=== PATIENT | female | born 1960 | race Caucasian/White ===

== ENCOUNTER → 2019-07-11 | Outpatient (CLI) | payer OTHER, SELFPAY ==
[2019-03-01 13:29] VITALS: BMI 23.2
[2019-07-11 12:21] LABS: Absolute Lymphocyte Count 1.42 X10^3/uL (0.83-4.51); Absolute Neutrophil Count 3.4 X10^3/uL (2.0-7.7); Basophil# 0.06 X10^3/uL; Basophil% 1.1 % (0-1); Eosinophil# 0.13 X10^3/uL; Eosinophils% 2.3 % (0-5); Hematocrit 43.9 % (37-47); Hemoglobin 14.1 g/dL (12.0-15.0); Lymphocyte # 1.42 X10^3/ul (4.0); Lymphocyte % 25.6 % (19-41); Mean Corp Hgb Conc 32.1 g/dL (32-36); Mean Corpuscular Hgb 31.1 pg (27.0-32.0); Mean Corpuscular Volume 96.7 fL (81-99); Mean Platelet Vol. 9.9 fl (6.2-12.0); Monocyte# 0.54 X10^3/uL; Monocyte% 9.7 % (0-10); NRBC Flagged by Analyzer 0 % (0-5); Neutrophil # 3.38 X10^3/uL (2.7-7.7); Neutrophil % 60.9 % (47-70); Platelet Count 275 K/mm3 (150-450); RBC Distribution Width CV 12.6 % (11.6-14.6); Red Blood Count 4.54 M/mm3 (4.2-5.4); White Blood Count 5.6 K/mm3 (4.4-11.0)
[2019-07-11 12:47] LABS: ALB/GLOB Ratio 1.2 RATIO (0.9-2.4); AST(SGOT) 18 U/L (15-37); Alanine Aminotransfer ALT/SGPT 29 U/L (13-56); Alkaline Phosphatase 45 U/L (45-117); Anion Gap 7 (5-15); BUN 20 mg/dL (7-18); BUN/Creat Ratio 22.8 RATIO (10-20); Calcium,Total 8.9 mg/dL (8.5-10.1); Chloride 106 mmol/L (98-107); Cholesterol 209 mg/dL (200); Creatinine, Serum 0.88 mg/dL (0.55-1.02); EST Glomerular Filtration Rate 70 mL/min (>60); Est Glom Filt Rate - Afr Amer 85 mL/min (>60); Globulin 3.4 g/dL (2.2-4.2); Glucose 97 mg/dL (74-106); High Density Lipoprotein 76 mg/dL; Potassium 4.1 mmol/L (3.5-5.1); Protein, Total 7.4 g/dL (6.4-8.2); Sodium Level 140 mmol/L (136-145); Thyroid Stim Hormone (TSH) 1.97 uIU/mL (0.358-3.74); Triglycerides 125 mg/dL; Very Low Density Lipoprotein 25 mg/dL (5-40)
== END | disposition home or self-care (01) ==
PROVIDERS: Visit Provider Family Medicine
DX: Z00.00 Encounter for general adult medical examination without abnormal findings (principal); R01.1 Cardiac murmur, unspecified; R53.83 Other fatigue
CPT/HCPCS: 36415; 80053; 80061; 84443; 85025

== ENCOUNTER → 2019-09-05 08:44 | Outpatient (CLI) | payer OTHER, SELFPAY ==
[2019-03-01 13:29] VITALS: BMI 23.2
--- NOTE | 2019-09-05 08:46 | ECHOD_ITS ---
Reason For Study: Systolic murmur Procedure This was a 2D Doppler, Color Flow transthoracic echocardiogram. Exam performed in department. Left Ventricle Normal LV size. Left ventricular systolic function is normal. The estimated ejection fraction is 60 %. Stage 3 diastolic dysfunction. No regional wall motion abnormalities noted. Right Ventricle Normal RV size. Normal systolic function. Atria Normal left atrium. Normal right atrium. Bubble contrast study negative for right to left interatrial shunt. Mitral Valve Moderate mitral valve prolapse. Moderate mitral valve prolapse, anterior leaflet. Moderate mitral valve prolapse, posterior leaflet. Moderate (2+) eccentric mitral valve insufficiency. Mild-Moderate (1-2+) anteriorly directed mitral valve insufficiency. Mild-Moderate (1-2+) posteriorly directed mitral valve insufficiency. Tricuspid Valve Normal tricuspid valve. Mild (1+) tricuspid valve insufficiency. Pulmonary artery systolic pressure is 31 mmHg. Aortic Valve Normal aortic valve. Trisinus/trileaflet aortic valve. Mild (1+) eccentric aortic valve insufficiency. Pulmonic Valve Normal pulmonic valve. Great Vessels Normal aortic root. The pulmonary artery is normal size. Normal inferior vena cava. Pericardium/Pleural No pericardial effusion. Medication Performed a rapid injection of agitated mix of 9 cc saline and 1cc air to assess for atrial septal defect. MMode/2D Measurements & Calculations LVIDd: 4.8 cm IVSd: 1.3 cm Ao root diam: 3.3 cm LVIDs: 2.7 cm LVPWd: 1.1 cm RVDd: 3.7 cm FS: 43.9 % LAV(MOD-bp): 59.3 ml LVAd ap4: 28.4 cm2 SV(MOD-sp4): 57.7 ml LAV(MOD-bp) Indexed: 33.3 ml/m2 EDV(MOD-sp4): 85.2 ml LAV(MOD-sp2): 59.8 ml EDV(sp4-el): 87.4 ml LAV(MOD-sp4): 54.9 ml LVAs ap4: 14.4 cm2 ESV(MOD-sp4): 27.5 ml ESV(sp4-el): 26.7 ml EF(MOD-sp4): 67.7 % EF(sp4-el): 69.4 % SV(sp4-el): 60.6 ml LA A4 area: 17.5 cm2 LA dimension(2D): 3.9 cm RA A4 area: 15.0 cm2 Doppler Measurements & Calculations MV E max paul: 115.4 cm/sec Lat Peak E' Paul: 4.4 cm/sec Med Peak E' Paul: 7.6 cm/sec MV A max paul: 52.8 cm/sec E/E' lat: 26.3 E/E' med: 15.3 MV E/A: 2.2 Ao V2 max: 117.1 cm/sec AI max paul: 375.3 cm/sec LV V1 max: 89.8 cm/sec Ao max P.5 mmHg AI max P.3 mmHg LV V1 max P.2 mmHg Ao V2 mean: 83.6 cm/sec Ao mean P.1 mmHg AI dec slope: 173.7 cm/sec2 Ao V2 VTI: 24.1 cm AI P1/2t: 632.7 msec PA V2 max: 57.4 cm/sec TR max paul: 262.4 cm/sec TR max P.5 mmHg Interpretation Summary Normal LV size. Left ventricular systolic function is normal. The estimated ejection fraction is 60 %. Stage 3 diastolic dysfunction. Bubble contrast study negative for right to left interatrial shunt. Moderate mitral valve prolapse. Mild-Moderate (1-2+) anteriorly directed mitral valve insufficiency. Mild-Moderate (1-2+) posteriorly directed mitral valve insufficiency. Ordering Physician: Smita Gonzalez Referring Physician: Smita Gonzalez Performed By: Denise Dickey, ANTHONY, RVT
== END ==
PROVIDERS: Family Provider Family Medicine; PCP Family Medicine; Referring Provider Family Medicine; Visit Provider Family Medicine
DX: R01.1 Cardiac murmur, unspecified (principal)
CPT/HCPCS: 93306; A4216

== ENCOUNTER → 2020-10-16 12:40 | Outpatient (CLI) | payer OTHER, SELFPAY ==
[2020-06-20 16:04] VITALS: BMI 23.9
--- NOTE | 2020-10-16 12:46 | ECHOD_ITS ---
Reason For Study: MVP Procedure This was a 2D Doppler, Color Flow transthoracic echocardiogram. Exam performed in department. Left Ventricle Normal LV size. Left ventricular systolic function is normal. The estimated ejection fraction is 55 %. No regional wall motion abnormalities noted. Right Ventricle Normal right ventricle. Normal systolic function. Atria Normal left atrium. Normal right atrium. Mitral Valve Moderate mitral valve prolapse. Mild-Moderate (1-2+) posteriorly directed mitral valve insufficiency. Tricuspid Valve Normal tricuspid valve. Mild tricuspid valve insufficiency. Pulmonary artery systolic pressure is 26 mmHg. Aortic Valve Normal aortic valve. Trisinus/trileaflet aortic valve. Mild (1+) aortic valve insufficiency. Pulmonic Valve Normal pulmonic valve. Great Vessels Normal aortic root. The pulmonary artery is normal size. Normal inferior vena cava. Pericardium/Pleural No pericardial effusion. MMode/2D Measurements & Calculations LVIDd: 4.7 cm IVSd: 1.1 cm Ao root diam: 4.0 cm LVIDs: 2.6 cm LVPWd: 1.0 cm RVDd: 2.8 cm FS: 44.0 % LAV(MOD-bp): 75.6 ml EDV(MOD-sp4): 126.2 ml EDV(MOD-sp2): 120.4 ml LAV(MOD-bp) Indexed: 41.9 ml/m2 ESV(MOD-sp4): 44.9 ml EF(MOD-sp2): 65.3 % LAV(MOD-sp2): 90.0 ml EF(MOD-sp4): 64.4 % LAV(MOD-sp4): 61.1 ml SV(MOD-sp4): 81.3 ml SV(MOD-sp2): 78.6 ml LA A4 area: 20.9 cm2 LA dimension(2D): 4.0 cm RA A4 area: 13.0 cm2 Time Measurements MV dec time: 0.19 sec Doppler Measurements & Calculations MV E max paul: 107.9 cm/sec Lat Peak E' Paul: 10.5 cm/sec Med Peak E' Paul: 8.3 cm/sec MV A max paul: 57.9 cm/sec E/E' lat: 10.2 E/E' med: 12.9 MV E/A: 1.9 Ao V2 max: 125.7 cm/sec AI max paul: 411.2 cm/sec LV V1 max: 122.0 cm/sec Ao max P.3 mmHg AI max P.6 mmHg LV V1 max P.0 mmHg AI dec slope: 199.9 cm/sec2 AI P1/2t: 602.6 msec PA V2 max: 65.8 cm/sec TR max paul: 239.6 cm/sec TR max P.0 mmHg Interpretation Summary Normal LV size. Left ventricular systolic function is normal. The estimated ejection fraction is 55 %. Mild-Moderate (1-2+) posteriorly directed mitral valve insufficiency. Moderate mitral valve prolapse. Compared to prior study, there is no significant change. Ordering Physician: Karson Sow Referring Physician: Smita Gonzalez Performed By: Yvrose Negrete, RDCS, RVT
== END ==
PROVIDERS: PCP Family Medicine; Referring Provider Internal Medicine Cardiovascular Disease; Visit Provider Internal Medicine Cardiovascular Disease
DX: I34.1 Nonrheumatic mitral (valve) prolapse (principal)
CPT/HCPCS: 93306

== ENCOUNTER → 2021-05-02 13:43 | Outpatient (CLI) | payer OTHER, SELFPAY ==
[2020-06-20 16:04] VITALS: BMI 23.9
--- NOTE | 2021-05-02 13:47 | ECHOD_ITS ---
Reason For Study: MVP Procedure This was a 2D Doppler, Color Flow transthoracic echocardiogram. Exam performed in department. Left Ventricle Normal LV size. Left ventricular systolic function is normal. The estimated ejection fraction is 60 %. No regional wall motion abnormalities noted. Right Ventricle Normal RV size. Normal systolic function. Atria Normal left atrium. Normal right atrium. Mitral Valve Bileaflet diffuse mitral valve thickening. Posterior leaflet mitral valve prolapse. Moderate (2+) anteriorly directed mitral valve insufficiency. Tricuspid Valve Normal tricuspid valve. Mild (1+) tricuspid valve insufficiency. Aortic Valve Trisinus/trileaflet aortic valve. Mild (1+) aortic valve insufficiency. Pulmonic Valve Normal pulmonic valve. Great Vessels Normal aortic root. The pulmonary artery is normal size. Normal inferior vena cava. Pericardium/Pleural No pericardial effusion. MMode/2D Measurements & Calculations LVIDd: 4.7 cm IVSd: 1.3 cm Ao root diam: 3.6 cm LVIDs: 2.4 cm LVPWd: 1.3 cm FS: 49.1 % LAV(MOD-bp): 59.1 ml LVAd ap4: 35.8 cm2 SV(MOD-sp4): 72.4 ml LAV(MOD-bp) Indexed: 32.7 ml/m2 LVLd ap4: 8.0 cm LAV(MOD-sp2): 72.1 ml EDV(MOD-sp4): 131.8 ml LAV(MOD-sp4): 43.3 ml EDV(sp4-el): 136.0 ml LVAs ap4: 23.8 cm2 LVLs ap4: 7.8 cm ESV(MOD-sp4): 59.4 ml ESV(sp4-el): 61.2 ml EF(MOD-sp4): 54.9 % EF(sp4-el): 55.0 % SV(sp4-el): 74.8 ml LA A4 area: 17.5 cm2 LA dimension(2D): 3.7 cm RA A4 area: 13.0 cm2 Doppler Measurements & Calculations MV E max paul: 124.1 cm/sec Lat Peak E' Paul: 9.1 cm/sec Med Peak E' Paul: 7.2 cm/sec MV A max paul: 62.7 cm/sec E/E' lat: 13.6 E/E' med: 17.3 MV E/A: 2.0 Ao V2 max: 149.7 cm/sec AI max paul: 411.0 cm/sec LV V1 max: 105.0 cm/sec Ao max P.0 mmHg AI max P.6 mmHg LV V1 max P.4 mmHg AI dec slope: 168.6 cm/sec2 AI P1/2t: 713.8 msec PA V2 max: 58.7 cm/sec TR max paul: 243.5 cm/sec TR max P.7 mmHg ECHO/Echo Complete Interpretation Summary Normal LV size. Left ventricular systolic function is normal. The estimated ejection fraction is 60 %. Posterior leaflet mitral valve prolapse. Moderate (2+) anteriorly directed mitral valve insufficiency. Mild (1+) aortic valve insufficiency. Compared to the previous there is no change. Ordering Physician: Karson Sow Referring Physician: Smita Gonzalez Performed By: Marisol De La Rosa, ANTHONY
== END ==
PROVIDERS: PCP Family Medicine; Referring Provider Internal Medicine Cardiovascular Disease; Visit Provider Internal Medicine Cardiovascular Disease
DX: I34.1 Nonrheumatic mitral (valve) prolapse (principal); I34.0 Nonrheumatic mitral (valve) insufficiency; I11.9 Hypertensive heart disease without heart failure; R00.2 Palpitations; R07.9 Chest pain, unspecified
CPT/HCPCS: 93306

== ENCOUNTER → 2022-02-19 | Outpatient (CLI) | payer OTHER, SELFPAY ==
--- NOTE | 2022-02-19 13:00 | ECHOD_ITS ---
Reason For Study: MV Insufficiency Procedure This was a 2D Doppler, Color Flow transthoracic echocardiogram. Exam performed in department. Left Ventricle Normal LV size. Left ventricular systolic function is normal. The estimated ejection fraction is 60 %. Stage 2 diastolic dysfunction. No regional wall motion abnormalities noted. Right Ventricle Normal RV size. Normal systolic function. Atria Normal left atrium. Normal right atrium. Mitral Valve Bileaflet diffuse mitral valve thickening. Anterior leaflet mitral valve prolapse. Mild mitral valve prolapse, posterior leaflet. Moderate (2+) anteriorly directed mitral valve insufficiency. Tricuspid Valve Normal tricuspid valve. Mild to moderate (1-2+) tricuspid valve insufficiency. Pulmonary artery systolic pressure is 34 mmHg. Aortic Valve Normal aortic valve. Pulmonic Valve Normal pulmonic valve. Great Vessels Mildly dilated aortic root. The pulmonary artery is normal size. Normal inferior vena cava. Pericardium/Pleural No pericardial effusion. MMode/2D Measurements & Calculations LVIDd: 5.0 cm IVSd: 1.0 cm Ao root diam: 3.8 cm LVIDs: 2.7 cm LVPWd: 1.1 cm RVDd: 3.1 cm FS: 46.7 % LAV(MOD-bp): 58.9 ml LVAd ap4: 27.9 cm2 SV(MOD-sp4): 58.2 ml LAV(MOD-bp) Indexed: 32.9 ml/m2 LVLd ap4: 7.7 cm LAV(MOD-sp2): 73.0 ml EDV(MOD-sp4): 83.5 ml LAV(MOD-sp4): 43.3 ml EDV(sp4-el): 86.4 ml LVAs ap4: 13.9 cm2 LVLs ap4: 6.4 cm ESV(MOD-sp4): 25.3 ml ESV(sp4-el): 25.4 ml EF(MOD-sp4): 69.7 % EF(sp4-el): 70.6 % SV(sp4-el): 61.0 ml LA A4 area: 17.0 cm2 LA dimension(2D): 4.0 cm RA A4 area: 11.9 cm2 Doppler Measurements & Calculations MV E max paul: 120.8 cm/sec Lat Peak E' Paul: 8.0 cm/sec Med Peak E' Paul: 5.7 cm/sec MV A max paul: 64.7 cm/sec E/E' lat: 15.1 E/E' med: 21.0 MV E/A: 1.9 Ao V2 max: 129.6 cm/sec LV V1 max: 98.7 cm/sec PA V2 max: 91.5 cm/sec Ao max P.7 mmHg LV V1 max P.9 mmHg Ao V2 mean: 94.9 cm/sec Ao mean P.9 mmHg Ao V2 VTI: 19.4 cm PI end-d paul: 106.9 cm/sec TR max paul: 272.1 cm/sec TR max P.6 mmHg ECHO/Echo Complete Interpretation Summary Normal LV size. Left ventricular systolic function is normal. The estimated ejection fraction is 60 %. Mild mitral valve prolapse, posterior leaflet Moderate (2+) anteriorly directed mitral valve insufficiency. Stage 2 diastolic dysfunction. Mildly dilated aortic root. Pulmonary artery systolic pressure is 34 mmHg. Ordering Physician: Brooke Romero Referring Physician: Smita Gonzalez Performed By: Denise Dickey, ANTHONY, RVT
== END | disposition home or self-care (01) ==
LOC: CVS 12:58
PROVIDERS: PCP Family Medicine; Referring Provider Nurse Practitioner Gerontology; Visit Provider Nurse Practitioner Gerontology
DX: I34.0 Nonrheumatic mitral (valve) insufficiency (principal); I34.1 Nonrheumatic mitral (valve) prolapse; R00.2 Palpitations
CPT/HCPCS: 93225; 93226; 93306

== ENCOUNTER → 2022-04-21 | Outpatient (CLI) | payer OTHER, SELFPAY ==
--- NOTE | 2022-04-21 13:13 | STRESSREP ---
Stress Test Report Exercise stress test. 62-year-old lady with a history of chest pain. Stress protocol: Resting KG demonstrates normal sinus rhythm with a rate of 66 bpm normal intervals are noted resting blood pressure is 110/68 mmHg. The patient exercised according to regular Flakito protocol for total duration of 10 minutes. Patient completed 1 minute into stage IV of the Flakito protocol. The maximum heart rate attained was 171 bpm which was 108% of max impacted heart rate the maximum workload was 13.4 metabolic equivalents. At rest there were no ST or T wave changes noted to suggest ischemia and at peak exercise upsloping ST changes were noted with did not meet the criteria for ischemia. No clinical angina was noted. No arrhythmias were noted. The peak blood pressure was 144/74 mmHg which was a good blood pressure response to exercise. Conclusion: Exercise stress test with no EKG criteria for ischemia at a high workload. No clinical angina noted. Excellent functional capacity.
== END | disposition home or self-care (01) ==
LOC: CVS 11:40
PROVIDERS: PCP Family Medicine; Referring Provider Nurse Practitioner Gerontology; Visit Provider Nurse Practitioner Gerontology
DX: I34.1 Nonrheumatic mitral (valve) prolapse (principal); R07.9 Chest pain, unspecified; R00.2 Palpitations
CPT/HCPCS: 93017

== ENCOUNTER → 2022-05-02 | Outpatient (CLI) | payer OTHER, SELFPAY | END | disposition home or self-care (01) | LOC: OPBI 17:26 | PROVIDERS: PCP Family Medicine; Visit Provider Student in an Organized Health Care Education/Training Program | DX: Z12.4 Encounter for screening for malignant neoplasm of cervix (principal) ==

== ENCOUNTER → 2023-05-22 | Outpatient (CLI) | payer OTHER, SELFPAY ==
--- NOTE | 2023-05-22 10:49 | ECHOD_ITS ---
Reason For Study: MVP Procedure This was a 2D Doppler, Color Flow transthoracic echocardiogram. Exam performed in department. Left Ventricle Normal LV size. Left ventricular systolic function is normal. The estimated ejection fraction is 70 %. Normal diastology for age. No regional wall motion abnormalities noted. Right Ventricle Normal RV size. Normal systolic function. Atria Normal left atrium. Normal right atrium. Mitral Valve Bileaflet diffuse mitral valve thickening. Anterior leaflet mitral valve prolapse. Mild mitral valve prolapse, posterior leaflet. Moderately severe (3+) eccentric mitral valve insufficiency. Tricuspid Valve Normal tricuspid valve. Mild to moderate (1-2+) tricuspid valve insufficiency. Pulmonary artery systolic pressure is 44 mmHg. Aortic Valve Trisinus/trileaflet aortic valve. Trivial eccentric aortic valve insufficiency. MMode/2D Measurements & Calculations LVIDd: 5.4 cm IVSd: 0.98 cm Ao root diam: 3.9 cm LVIDs: 2.7 cm LVPWd: 0.89 cm RVDd: 3.5 cm FS: 50.1 % LAV(MOD-bp): 76.0 ml SV(MOD-sp4): 52.9 ml LVAd ap4: 29.0 cm2 LAV(MOD-bp) Indexed: 42.5 ml/m2 LVLd ap4: 7.4 cm LAV(MOD-sp2): 85.5 ml EDV(MOD-sp4): 92.3 ml LAV(MOD-sp4): 62.5 ml EDV(sp4-el): 96.3 ml LVAs ap4: 17.5 cm2 LVLs ap4: 6.4 cm ESV(MOD-sp4): 39.4 ml ESV(sp4-el): 40.6 ml EF(MOD-sp4): 57.4 % EF(sp4-el): 57.8 % SV(sp4-el): 55.7 ml LA A4 area: 19.8 cm2 LA dimension(2D): 3.8 cm TAPSE: 2.5 cm RA A4 area: 11.9 cm2 Time Measurements MV dec time: 0.21 sec Doppler Measurements & Calculations MV E max paul: 123.3 cm/sec Lat Peak E' Paul: 7.9 cm/sec Med Peak E' Paul: 8.2 cm/sec MV A max paul: 59.9 cm/sec E/E' lat: 15.5 E/E' med: 15.1 MV E/A: 2.1 MV V2 max: 156.5 cm/sec MV dec slope: 591.6 cm/sec2 Ao V2 max: 125.1 cm/sec MV max P.8 mmHg Ao max P.3 mmHg MV V2 mean: 82.6 cm/sec Ao V2 mean: 84.1 cm/sec MV mean P.3 mmHg Ao mean P.2 mmHg MV V2 VTI: 33.9 cm Ao V2 VTI: 20.5 cm AV (velocity ratio): 0.73 AI max paul: 375.7 cm/sec LV V1 max: 103.3 cm/sec PA V2 max: 70.9 cm/sec AI max P.4 mmHg LV V1 max P.3 mmHg AI dec slope: 233.7 cm/sec2 LV V1 mean P.3 mmHg AI P1/2t: 470.8 msec LV V1 mean: 73.0 cm/sec LV V1 VTI: 15.0 cm PI end-d paul: 117.8 cm/sec TR max paul: 321.1 cm/sec TR max P.2 mmHg ECHO/Echo Complete Interpretation Summary Normal LV size. Left ventricular systolic function is normal. The estimated ejection fraction is 70 %. Anterior leaflet mitral valve prolapse. Mild mitral valve prolapse, posterior leaflet Moderately severe (3+) eccentric mitral valve insufficiency. Prior to the previous the extent of the mitral regurgitation is worse and the p ulmonary pressures are mildly elevated. Ordering Physician: Karson Sow Referring Physician: Smita Gonzalez Performed By: Denise Dickey, RDCS, RVT
== END | disposition home or self-care (01) ==
PROVIDERS: PCP Family Medicine; Referring Provider Internal Medicine Cardiovascular Disease; Visit Provider Internal Medicine Cardiovascular Disease
DX: I34.1 Nonrheumatic mitral (valve) prolapse (principal); I77.810 Thoracic aortic ectasia; I34.0 Nonrheumatic mitral (valve) insufficiency; I11.9 Hypertensive heart disease without heart failure; R00.2 Palpitations; R53.83 Other fatigue; R42 Dizziness and giddiness
CPT/HCPCS: 93306

== ENCOUNTER 2023-06-17 06:45 | Day surgery (SDC) | payer OTHER, SELFPAY ==
--- NOTE | 2023-06-01 16:06 | PCM.HP.BLA ---
History and Physical Date of Admission: 06/17/23 This is a pleasant 63-year-old lady who presents to [facility] today for a heart catheterization. She has a history of mitral valve disease. She also as part of her work-up underwent a Holter monitor which demonstrated an average heart rate of 86 bpm with no acute changes as well as a stress test where she exercised to 13.4 metabolic equivalents without any evidence of ischemia. She had a repeat echocardiogram May 2023.. She denies SOB, Orthopnea, and PND. She does not have bleeding issues; no blood in urine, stool or nosebleeds. She does have fatigue over the last year. She denies myalgias, or claudication. She does not have edema, or sudden weight gain. She states that she has lightheadedness/dizziness with quick positional changes. She denies syncopal or near syncopal episodes, and headaches. Intake Vital Signs: See EMR Intake Visit Reasons: [facility] Allergies tetracycline Allergy (Mild, Verified 04/21/22 13:24) rash Medications See EMR [facility] Medical History Dilated aortic root Essential (primary) hypertension Left ventricular diastolic dysfunction Lightheadedness Nonrheumatic mitral (valve) insufficiency Nonrheumatic mitral (valve) prolapse Osteoarthritis Surgical History History of breast augmentation History of breast implant removal History of colonoscopy (2014) history of left calcaneous repair History of open reduction and internal fixation (ORIF) procedure (11/2018) History of repair of anterior cruciate ligament of right knee History of tonsillectomy and adenoidectomy History of wisdom tooth extraction Family History Brother Heart disease Hypertension Myocardial infarction, Onset Age: 47 from [place] age 47 had valvular heart diseaseFather Multiple sclerosisMother Breast cancerSon Heart disease MVP Social History Smoking Status: Never smoker alcohol intake: current alcohol intake frequency: a few times a week substance use type: does not use caffeine: Yes ([employer]) Type: other Number of servings: 1 ROS Const Const: Positive for fatigue (taking naps w/o relief); Negative for weakness, headache(s), frequent falls, difficulty sleeping or excessive sweating Eyes Eyes: Negative for loss of peripheral vision, transient loss of vision, blurry vision, double vision or tunnel vision ENT ENT: Negative for headache(s), dizziness, Nosebleed/epistaxis or balance problems Cardio Chest Pain: No Palpitations: Yes (with exercise) feels like its: skipping and thumping Edema: None Muscle aches with walking: None Resp Respiratory: Negative for SOB with activity, SOB at rest, SOB orthopnea\SOB lying down, Cough or paroxysmal nocturnal dyspnea GI GI: Negative nausea, vomiting, heartburn or black,tarry stools : Negative for hematuria Musc Musc: Negative for muscle aches/ myalgia, muscle weakness, joint pain or balance problems Skin Skin: Negative non-healing lesions, rash or unusual bruising Neuro Neuro: Positive for lightheadedness (with position changes); Negative for dizziness, near syncope, syncope, orthostatic symptoms, frequent falls, headache(s), weakness, confusion, memory loss, blurry vision, double vision, vertigo or lack of coordination Kyle Hematologic/Lymphatic: Negative for easy bleeding or easy bruising Endo Endo: Positive for fatigue (taking naps w/o relief); Negative for excessive sweating, flushing or increased thirst/drinking Psych Psych: Negative for anxiety or depression Allergy Allergy/Immunology: Negative for hives and Negative for rash Cardiology Exam Const Appearance: cooperative and no acute distress Orientation: alert and oriented x3 Head Head: normal to inspection Ears: hearing grossly normal bilaterally Nose: external nose normal Face and Sinus: face symmetric Eyes General: appearance normal, both eyes and all related structures Eyelids: eyelids normal Conjunctivae: conjunctivae normal Pupils: PERRL and pupil size EOM: EOM intact bilaterally Neck Neck: normal visual inspection Carotids: Negative bruit Chest Chest inspection: normal inspection of the chest and normal respiratory effort Auscultation: Bilateral: Clear to Auscultation Cardio Palpation: normal PMI Rate: regular rate Rhythm: regular rhythm Heart sounds: S1 normal, S2 normal, murmur and mid systolic click; Negative rub or gallop Murmur: Grade 3/6, harsh, apex and axilla GI GI: normal to inspection and soft; Negative no hepatosplenomegaly Neuro General: patient alert, patient oriented x3 and CN's II-XI intact bilaterally Skin Skin: no rashes or lesions noted Extremities Pulses: Normal: Right Posterior Tibial Pulse, Left Posterior Tibial Pulse, Right Radial Pulse and Left Radial Pulse Lower Extremity Edema: None: Bilateral Psych Psychological: normal affect Supplemental Info Supplemental Information Echocardiogram from 05/22/2023: Interpretation Summary Normal LV size. Left ventricular systolic function is normal. The estimated ejection fraction is 70 %. Anterior leaflet mitral valve prolapse. Mild mitral valve prolapse, posterior leaflet Moderately severe (3+) eccentric mitral valve insufficiency. Prior to the previous the extent of the mitral regurgitation is worse and the pulmonary pressures are mildly elevated. ECHOCARDIOGRAM 02/19/2022 Interpretation Summary Normal LV size. Left ventricular systolic function is normal. The estimated ejection fraction is 60 %. Mild mitral valve prolapse, posterior leaflet Moderate (2+) anteriorly directed mitral valve insufficiency. Stage 2 diastolic dysfunction. Mildly dilated aortic root. Pulmonary artery systolic pressure is 34 mmHg.? Exercise stress test 04/21/2022 Conclusion: Exercise stress test with no EKG criteria for ischemia at a high workload. No clinical angina noted. Excellent functional capacity. Assessment and Plan Assessment and Plan (1) Nonrheumatic mitral (valve) prolapse: Status: Chronic Plan: She underwent an echocardiogram in May 2023 that showed ejection fraction of 70% and moderate to severe mitral valve insufficiency. RVSP was noted be 44 mmHg. She will proceed with heart catheterization to define coronary artery anatomy to assist with further mitral valve work-up.
--- NOTE | 2023-06-15 10:55 | RAD_ITS ---
EXAM: XR CHEST, 2 VIEWS CLINICAL INDICATION: pre procedure TECHNIQUE: Frontal and lateral views of the chest. COMPARISON: No relevant prior studies available. FINDINGS: LUNGS AND PLEURAL SPACES: Increased lucencies at the lower lungs suggests emphysema. No pneumothorax. No effusion. HEART: Unremarkable. Cardiac silhouette not enlarged. MEDIASTINUM: Central airways and mediastinal contour are unremarkable. BONES/JOINTS: S-shaped curvature of the spine with multilevel degenerative changes. No unusual lytic or sclerotic lesions of bone. SOFT TISSUES: Unremarkable. VASCULATURE: Ectatic thoracic aortic arch. RAD/Chest PA and Lateral IMPRESSION: No acute cardiopulmonary disease. Electronically Signed: Scotty Dobbs MD at 4:50 EDT ,
[2023-06-15 11:30] LABS: Absolute Lymphocyte Count 1.76 X10^3/uL (0.83-4.51); Absolute Neutrophil Count 3.4 X10^3/uL (2.0-7.7); Basophil# 0.05 X10^3/uL; Basophil% 0.9 % (0-1); Eosinophils% 1.7 % (0-5); Hematocrit 44.3 % (37-47); Hemoglobin 14.7 g/dL (12.0-15.0); Lymphocyte # 1.76 X10^3/ul (0.83-4.51); Lymphocyte % 30.2 % (19-41); Mean Corp Hgb Conc 33.2 g/dL (32-36); Mean Corpuscular Hgb 32.5 pg (27.0-32.0); Mean Corpuscular Volume 97.8 fL (81-99); Mean Platelet Vol. 9.8 fl (6.2-12.0); Monocyte# 0.55 X10^3/uL; Monocyte% 9.4 % (0-10); NRBC Flagged by Analyzer 0 % (0-5); Neutrophil # 3.35 X10^3/uL (2.7-7.7); Neutrophil % 57.5 % (47-70); Platelet Count 285 K/mm3 (150-450); RBC Distribution Width CV 12.8 % (11.6-14.6); RBC Distribution Width SD 45.7 fl (35.1-43.9); Red Blood Count 4.53 M/mm3 (4.2-5.4); White Blood Count 5.8 K/mm3 (4.4-11.0)
[2023-06-15 11:47] LABS: Prothrombin Time (Protime)PT. 13.4 SECONDS (11.7-14.9)
[2023-06-15 11:59] LABS: Anion Gap 4 (5-15); BUN 17 mg/dL (7-18); BUN/Creat Ratio 19.5 RATIO (10-20); Calcium,Total 9.6 mg/dL (8.5-10.1); Chloride 105 mmol/L (98-107); Creatinine, Serum 0.87 mg/dL (0.55-1.02); EST Glomerular Filtration Rate 69 mL/min (>60); Est Glom Filt Rate - Afr Amer 84 mL/min (>60); Glucose 89 mg/dL (74-106); Potassium 3.8 mmol/L (3.5-5.1); Sodium Level 138 mmol/L (136-145)
[2023-06-16 12:59] VITALS: BMI 23.9
--- NOTE | 2023-06-17 08:43 | CL.D_ITS ---
Patient Name: JUANITO HDEZ Study Date: 06/17/2023 Performing: Karson Sow MD Ht: 67 inches 170.18 cm : 1960 Wt: 153 lbs 69.4 kg Age: 63 Gender: female BSA: 1.8 PROCEDURE(S) PERFORMED DC01-([id number])LHC/COR/LV CLINICAL PROFILE AND INDICATIONS Indications: Valvular Disease Heart Failure: None Stress/Imaging Stress/Image Study Performed: No CAD Presentations: No Sxs, no angina. CONCLUSIONS Normal coronary arteries Normal LV size, wall motion,and systolic function Mitral Valve Insufficiency Severe RECOMMENDATIONS Surgery consult for valvular disease DESCRIPTION OF PROCEDURE The patient arrived to the procedure lab. The risks and benefits of the procedure as well as a full description of our services here and current unavailability of surgical backup were fully explained to the patient and/or their significant other prior to the catheterization. The Timeout was completed, verifying the correct patient and procedure. The patient's procedural site was prepped and draped in the usual fashion. Local anesthetic was given subcutaneously to right radial region with Lidocaine 2%. Local anesthetic was given subcutaneously to right groin region with Lidocaine 2%. Using a modified Seldinger technique, arterial access was obtained via the right femoral artery, a 5Fr sheath was inserted. Left Coronary Artery selective angiography was performed in multiple views using a 5 Fr. JL4 catheter. Right Coronary Artery selective angiography was then performed in multiple views using a 5 Fr. 3DRC (Julien) catheter. Left Ventriculography was performed in OLSON projection using a 5 Fr. Pigtail catheter. LV to AO pullback pressures were then recorded.Contrast was injected through the sheath and the Right Iliac and Femoral artery were assessed for possible closure device.The arterial sheath was pulled and a Mynx closure device was deployed for hemostasis CORONARY ANGIOGRAPHY DOMINANCE: Right Dominant LEFT HEART ASSESSMENT Left Ventricular Ejection Fraction: by LV Gram 60 % Normal LV wall motion Normal Left Ventricular systolic function LEFT MAIN: Angiographically normal LEFT ANTERIOR DESCENDING ARTERY: Angiographically normal CIRCUMFLEX ARTERY: Angiographically normal RIGHT CORONARY ARTERY: No significant disease noted VALVE FINDINGS: Mitral Valve Insufficiency - Grade 4 COMPLICATIONS No Complications PROCEDURE MEDICATIONS Versed 0.5 mg IV Fentanyl 25 mcg IV Fentanyl 25 mcg IV Versed 0.5 mg IV Oxygen: 2 L/min via nasal cannula Aspirin (325mg) 1 Tabs PO @ 06/17/2023 07:00:04 IV Bolus: .9 NaCl 250 ml total 06/17/2023 08:31:24 SUMMARY OF HEMODYNAMIC DATA Time AIR REST ECG 07:22:41 AO 95/65 (78) SA 08:19:16 AO 81/57 (68) 08:20:03 LV 98/-2, 8 08:25:44 LV 93/0, 9 08:25:52 LV 91/8, 11 08:26:23 LV 81/7, 10 08:26:32 LVp 78/5, 11 08:26:40 AOp 82/55 (68) 08:26:47 Signed By Karson Sow MD On 06/17/2023 08:42:07 Karson Sow MD
== END 2023-06-17 12:15 | disposition home or self-care (01) ==
PROVIDERS: Physician Assistant Medical; PCP Family Medicine; Referring Provider Internal Medicine Cardiovascular Disease; Visit Provider Internal Medicine Cardiovascular Disease
DX: I34.0 Nonrheumatic mitral (valve) insufficiency (principal); R00.2 Palpitations; R53.83 Other fatigue; R42 Dizziness and giddiness
CPT/HCPCS: 36415; 71046; 80048; 85025; 85610; 85730; 93005; 93458; 99152; 99153; C1760; J7040; Q9967; C1769; C1894

== ENCOUNTER → 2025-02-14 | Outpatient (CLI) | payer MEDICARE, SELFPAY ==
--- NOTE | 2025-02-14 12:47 | ECHOD_ITS ---
Reason For Study : Ventricular Septal Defect Procedure This was a 2D Doppler, Color Flow transthoracic echocardiogram. Exam performed in department. Left Ventricle Normal LV size. Left ventricular systolic function is normal. The left ventricular ejection fraction is 55 %. Stage 1 diastolic dysfunction. Right Ventricle Normal RV size. Normal systolic function. Atria Normal left atrium. Normal right atrium. Bubble contrast study is negative for PFO/ASD. Mitral Valve Bileaflet diffuse mitral valve thickening. Mild mitral valve prolapse, bileaflet. Status post mitral valve repair. Aortic Valve Trisinus/trileaflet aortic valve. Mild focal aortic valve calcification. Great Vessels Moderately dilated aortic root. The pulmonary artery is normal size. Inferior vena cava collapse with respiration. Pericardium/Pleural No pericardial effusion. Medication 22 gauge I.V. with prn adaptor inserted into right arm. Performed a rapid injection of agitated mix of 9 cc saline and 1cc air to assess for atrial septal defect. MMode/2D Measurements & Calculations LVIDd: 3.9 cm IVSd: 1.2 cm Ao root diam: 4.0 cm LVIDs: 3.0 cm LVPWd: 1.1 cm RVDd: 3.5 cm FS: 23.1 % LAV(MOD-bp): 36.4 ml Ao sinus diam: 4.[address] Junction: 3.1 cm LAV(MOD-bp) Indexed: 21.3 ml/m2 LAV(MOD-sp2): 33.6 ml LAV(MOD-sp4): 34.3 ml LA A4 area: 13.7 cm2 LA dimension(2D): 3.2 cm RA A4 area: 12.1 cm2 TAPSE: 1.2 cm Time Measurements MV dec time: 0.20 sec Doppler Measurements & Calculations MV E max paul: 79.6 cm/sec Lat Peak E' Paul: 11.4 cm/sec Med Peak E' Paul: 7.6 cm/sec MV A max paul: 115.9 cm/sec E/E' lat: 7.0 E/E' med: 10.4 MV E/A: 0.69 MV V2 max: 134.8 cm/sec MV P1/2t max paul: 93.6 cm/sec Ao V2 max: 99.8 cm/sec MV max P.3 mmHg MV P1/2t: 68.7 msec Ao max P.0 mmHg MV V2 mean: 69.5 cm/sec Ao V2 mean: 70.8 cm/sec MV mean P.4 mmHg MV dec slope: 398.8 cm/sec2 Ao mean P.3 mmHg MV V2 VTI: 27.4 cm MVA(P1/2t): 3.2 cm2 Ao V2 VTI: 18.3 cm LV V1 max: 64.6 cm/sec PA V2 max: 79.0 cm/sec LV V1 max P.7 mmHg ECHO/Echo Complete Interpretation Summary Normal LV size. Left ventricular systolic function is normal. The left ventricular ejection fraction is 55 %. Bubble contrast study is negative for PFO/ASD. Stage 1 diastolic dysfunction. Moderately dilated aortic root. Mild mitral valve prolapse, bileaflet Status post mitral valve repair. Ordering Physician: Brooke Romero Referring Physician: Brooke Romero Performed By: Konrad Dennis RCS
== END | disposition home or self-care (01) ==
LOC: CVS 12:42
PROVIDERS: Referring Provider Nurse Practitioner Gerontology; Visit Provider Nurse Practitioner Gerontology
DX: Z98.890 Other specified postprocedural states (principal)
CPT/HCPCS: 93306; A4216